=== PATIENT | male | born 2000 | race Hispanic/Latino ===

== ENCOUNTER 2019-01-26 03:20 | Emergency (ER) | payer BC ==
[2019-01-26 03:49] LABS: APPEARANCE,URINE Clear (CLEAR); BILIRUBIN,URINE Negative (NEGATIVE); COLOR,URINE Yellow (YELLOW); GLUCOSE, URINE (UA) Negative (NEGATIVE); KETONES,URINE Negative (NEGATIVE); LEUKOCYTE ESTERASE ,URINE Negative (NEGATIVE); NITRATE,URINE Negative (NEGATIVE); OCCULT BLOOD,URINE Negative (NEGATIVE); PROTEIN,URINE Negative (NEGATIVE)
== END 2019-01-26 04:55 | disposition home or self-care (01) ==
LOC: EDH 03:20
DX: B34.9 Viral infection, unspecified (principal); R53.81 Other malaise; Z90.49 Acquired absence of other specified parts of digestive tract; Z72.0 Tobacco use
CPT/HCPCS: 81003; 87804; 93005